=== PATIENT | male | born 1965 | race Caucasian/White ===

== ENCOUNTER 2016-07-27 12:35 | Inpatient (IN) | payer MEDICARE ==
[2016-07-27 16:45] LABS: HEMOGLOBIN 15.7 gm/dl (14.0-17.5); RED BLOOD COUNT 5.27 M/UL (4.20-5.50); WHITE BLOOD COUNT 9.9 K/UL (4.5-11.0)
[2016-07-27 17:10] LABS: BUN/CREATININE RATIO 17 (0-10)
[2016-07-27] MEDS ORDERED: FLORINEF 0.1 M0.1 MG PO (18:53)
[2016-07-27] MEDS ORDERED: PRAVACHOL80 MG PO (18:54)
[2016-07-27] MEDS ORDERED: JANUVIA50 MG PO (18:54)
[2016-07-27] MEDS ORDERED: PROTONIX 40 MG40 M1 PO (18:55)
[2016-07-27] MEDS ORDERED: LISINOPRIL20 MG PO (18:56)
[2016-07-27] MEDS ORDERED: JARDIANCE25 MG PO (18:56)
[2016-07-27] MEDS ORDERED: METFORMIN HCL1000 MG PO (18:57)
[2016-07-27] MEDS ORDERED: UNIFINE PENTIP EAC MC (18:58)
[2016-07-27] MEDS ORDERED: FREESTYLE LITE1 EAC2 MC (19:00)
[2016-07-27] MEDS ORDERED: VICTOZA 1818 MG/3 ML SC (19:01)
[2016-07-27] MEDS ORDERED: NEURONTIN 400400 MG PO (19:02)
[2016-07-29 05:37] LABS: HEMOGLOBIN 16.6 gm/dl (14.0-17.5); RED BLOOD COUNT 5.45 M/UL (4.20-5.50); WHITE BLOOD COUNT 8.3 K/UL (4.5-11.0)
[2016-07-29 05:54] LABS: BUN/CREATININE RATIO 21 (0-10)
[2016-07-30 07:02] LABS: HEMOGLOBIN 16.6 gm/dl (14.0-17.5); RED BLOOD COUNT 5.56 M/UL (4.20-5.50); WHITE BLOOD COUNT 7.7 K/UL (4.5-11.0)
[2016-07-30 07:24] LABS: BUN/CREATININE RATIO 20 (0-10)
[2016-07-31 05:18] LABS: HEMOGLOBIN 15.9 gm/dl (14.0-17.5); RED BLOOD COUNT 5.32 M/UL (4.20-5.50)
[2016-07-31 05:40] LABS: BUN/CREATININE RATIO 19 (0-10)
[2016-08-01 07:55] LABS: BUN/CREATININE RATIO 14 (0-10)
[2016-08-01 08:02] LABS: HEMOGLOBIN 15.3 gm/dl (14.0-17.5); RED BLOOD COUNT 5.16 M/UL (4.20-5.50); WHITE BLOOD COUNT 10.6 K/UL (4.5-11.0)
[2016-08-02 07:14] LABS: BUN/CREATININE RATIO 14 (0-10)
[2016-08-03 05:10] LABS: HEMOGLOBIN 13.9 gm/dl (14.0-17.5); RED BLOOD COUNT 4.69 M/UL (4.20-5.50); WHITE BLOOD COUNT 8.2 K/UL (4.5-11.0)
[2016-08-03 05:33] LABS: BUN/CREATININE RATIO 16 (0-10)
[2016-08-04 05:38] LABS: HEMOGLOBIN 14.1 gm/dl (14.0-17.5); RED BLOOD COUNT 4.73 M/UL (4.20-5.50); WHITE BLOOD COUNT 8.1 K/UL (4.5-11.0)
[2016-08-04 05:54] LABS: BUN/CREATININE RATIO 19 (0-10)
== END 2016-08-04 15:02 | DRG 41 ==
LOC: M/S 12:35
PROVIDERS: Internal Medicine; Podiatrist Foot & Ankle Surgery; ADMIT Family Medicine
PROC: 0HXNXZZ Transfer Left Foot Skin, External Approach (ICD-10-PCS; 2016-07-30)
PROC: 0L8P0ZZ Division of Left Lower Leg Tendon, Open Approach (ICD-10-PCS; 2016-07-30)
PROC: 0SSL04Z Reposition Left Tarsometatarsal Joint with Internal Fixation Device, Open Approach (ICD-10-PCS; 2016-07-30)
PROC: 0HXNXZZ Transfer Left Foot Skin, External Approach (ICD-10-PCS; 2016-07-30)
PROC: 0JBR0ZZ Excision of Left Foot Subcutaneous Tissue and Fascia, Open Approach (ICD-10-PCS; 2016-07-30)
PROC: 0QBM0ZZ Excision of Left Tarsal, Open Approach (ICD-10-PCS; 2016-07-30)
PROC: 0SGJ04Z Fusion of Left Tarsal Joint with Internal Fixation Device, Open Approach (ICD-10-PCS; principal; 2016-07-30 14:30)
PROC: 02HV33Z Insertion of Infusion Device into Superior Vena Cava, Percutaneous Approach (ICD-10-PCS; 2016-08-04)
PROC: B548ZZA Ultrasonography of Superior Vena Cava, Guidance (ICD-10-PCS; 2016-08-04)
DX: E11.610 Type 2 diabetes mellitus with diabetic neuropathic arthropathy (principal); L03.116 Cellulitis of left lower limb; E11.621 Type 2 diabetes mellitus with foot ulcer; L97.523 Non-pressure chronic ulcer of other part of left foot with necrosis of muscle; B95.61 Methicillin susceptible Staphylococcus aureus infection as the cause of diseases classified elsewhere; B95.1 Streptococcus, group B, as the cause of diseases classified elsewhere; M24.575 Contracture, left foot; E11.42 Type 2 diabetes mellitus with diabetic polyneuropathy; E11.65 Type 2 diabetes mellitus with hyperglycemia; I12.9 Hypertensive chronic kidney disease with stage 1 through stage 4 chronic kidney disease, or unspecified chronic kidney disease; N18.3 Chronic kidney disease, stage 3 (moderate); E78.5 Hyperlipidemia, unspecified; M21.072 Valgus deformity, not elsewhere classified, left ankle; M24.475 Recurrent dislocation, left foot; R55 Syncope and collapse; M20.42 Other hammer toe(s) (acquired), left foot; E55.9 Vitamin D deficiency, unspecified; L84 Corns and callosities; M10.9 Gout, unspecified; Z87.11 Personal history of peptic ulcer disease; Z79.84 Long term (current) use of oral hypoglycemic drugs; Z79.4 Long term (current) use of insulin; Z79.899 Other long term (current) drug therapy; Z98.42 Cataract extraction status, left eye; Z98.41 Cataract extraction status, right eye; Z98.890 Other specified postprocedural states; Z82.49 Family history of ischemic heart disease and other diseases of the circulatory system; Z83.3 Family history of diabetes mellitus; Z82.0 Family history of epilepsy and other diseases of the nervous system; Z82.61 Family history of arthritis
CPT/HCPCS: 36415; 73630; 73718; 76000; 78805; 80048; 80053; 80061; 80202; 82962; 83036; 85025; 85027; 86140; 87070; 87077; 87186; 87205; 93926; A9569; C1713; J1200; J1335; J1650; J2250; J2405; J2543; J2795; J3010; J3370; J7030; J7050; J7070; J7120

== ENCOUNTER → 2016-09-20 | Outpatient (CLI) | payer MEDICARE ==
[~2016-09-20] MED LIST: FLORINEF 0.1 M0.1 MG PO; FREESTYLE LITE1 EAC2 MC; JANUVIA50 MG PO; JARDIANCE25 MG PO; LISINOPRIL20 MG PO; METFORMIN HCL1000 MG PO; NEURONTIN 400400 MG PO; PRAVACHOL80 MG PO; PROTONIX 40 MG40 M1 PO; UNIFINE PENTIP EAC MC; VICTOZA 1818 MG/3 ML SC
== END ==
LOC: KOH-I 10:53
DX: M14.672 Charcot's joint, left ankle and foot (principal); R60.0 Localized edema; Z98.1 Arthrodesis status
CPT/HCPCS: 73700

== ENCOUNTER → 2020-06-09 | Outpatient (CLI) | payer MEDICARE ==
[~2020-06-09] MED LIST changes: +ACIDOPHILUS LACT1 GM PO; +ALENDRONATE SOD70 MG PO; +AMLODIPINE BESY10 MG PO; +ANTIVERT 25MG T25 MG PO; +ASPIRIN CHEWABL81 MG PO; +CIPROFLOXACIN500 M1 PO; +CLINDAMYCIN HC300 MG PO; +GLUCOPHAGE 500500 MG PO; +GLUCOTROL10 MG PO; +HYDRALAZINE HCL10 MG PO; +LANTUS SOL100 UNIT/1 SQ; +LEVAQUIN750 MG PO; -LISINOPRIL20 MG PO; +LISINOPRIL40 MG PO; +MELOXICAM15 MG PO; +MIACALCIN NASA3.7 ML; +NESINA25 MG PO; +NORCO 5-325 TA1 EACH PO; +NOVOLOG FL100 UNIT/1 INJ; +NOVOLOG FL100 UNIT/1 SQ; +PLAVIX 75 MG TA75 MG PO; +PRAVASTATIN SOD80 MG PO; +VIBRAMYCIN100 MG PO; +VITAMIN C 500500 MG PO; +VITAMIN D250000 UNIT PO; +ZOLOFT100 MG PO; +ZYVOX600 MG PO
[2020-06-09 08:16] LABS: HEMOGLOBIN 16.2 gm/dl (14.0-17.5); RED BLOOD COUNT 5.41 M/UL (4.20-5.50); WHITE BLOOD COUNT 8.2 K/UL (4.5-11.0)
[2020-06-09 08:32] LABS: BUN/CREATININE RATIO 23 (0-10)
== END ==
LOC: LAB 07:41
PROVIDERS: Nurse Practitioner Family
DX: I10 Essential (primary) hypertension (principal); E11.9 Type 2 diabetes mellitus without complications
CPT/HCPCS: 36415; 80053; 83036; 85025

== ENCOUNTER → 2020-12-16 | Outpatient (CLI) | payer MEDICARE ==
[2020-12-16 08:44] LABS: HEMOGLOBIN 17.7 gm/dl (14.0-17.5); RED BLOOD COUNT 5.81 M/UL (4.20-5.50); WHITE BLOOD COUNT 8.4 K/UL (4.5-11.0)
[2020-12-16 09:13] LABS: BUN/CREATININE RATIO 15 (0-10)
== END ==
LOC: LAB 08:04
PROVIDERS: Nurse Practitioner Family
DX: I10 Essential (primary) hypertension (principal); E78.5 Hyperlipidemia, unspecified; E11.65 Type 2 diabetes mellitus with hyperglycemia; E53.8 Deficiency of other specified B group vitamins; E55.9 Vitamin D deficiency, unspecified
CPT/HCPCS: 36415; 80053; 80061; 82570; 82607; 84156; 84439; 84443; 85025